=== PATIENT | female | born 1995 | race Caucasian/White ===

== ENCOUNTER 2017-07-11 14:59 | Emergency (ER) | payer SELFPAY ==
[2017-07-11 15:26] VITALS: BP 115/66
--- NOTE | 2017-07-11 15:40 | UC ---
Complaint Female HPI - HPI Summary HPI Summary: 21 YEAR OLD FEMALE PRESENTS WITH COMPLAINS OF HEMORRHOIDAL PAIN. - History Of Current Complaint Chief Complaint: UCGeneralIllness Stated Complaint: PERSONAL Time Seen by Provider: 07/11/17 15:40 Hx Obtained From: Patient Hx Last Menstrual Period: 06/17/17 Onset/Duration: Sudden Onset Timing: Constant Severity Initially: Moderate Severity Currently: Moderate Pain Scale Used: 0-10 Numeric - 5 Character: Sharp Aggravating Factor(s): Movement Alleviating Factor(s): Position - Allergies/Home Medications Allergies/Adverse Reactions: Allergies Allergy/AdvReac Type Severity Reaction Status Date / Time Codeine Allergy Rash Verified 07/11/17 15:26 Home Medications: Home Medications Omeprazole CAP* [Prilosec CAP* 20 MG] 20 mg PO DAILY 07/11/17 [History Confirmed 07/11/17] PMH/Surg Hx/FS Hx/Imm Hx Previously Healthy: Yes - Surgical History Surgical History: Yes Surgery Procedure, Year, and Place: 2016 - Social History Alcohol Use: Occasionally Substance Use Type: None Smoking Status (MU): Heavy Every Day Tobacco Smoker Type: Cigarettes Amount Used/How Often: 1/2ppd - Immunization History Most Recent Influenza Vaccination: no Review of Systems Constitutional: Negative Skin: Negative Eyes: Negative ENT: Negative Respiratory: Negative Cardiovascular: Negative Gastrointestinal: Other - ANAL FISSURE PAIN Genitourinary: Negative Motor: Negative Neurovascular: Negative Musculoskeletal: Negative Neurological: Negative Psychological: Negative All Other Systems Reviewed And Are Negative: Yes Physical Exam Triage Information Reviewed: Yes Vital Signs: Initial Vital Signs Temp 36.6 C 07/11/17 15:18 Pulse 98 07/11/17 15:18 Resp 15 07/11/17 15:18 BP 115/66 07/11/17 15:18 Pulse Ox 100 07/11/17 15:18 Vital Signs Reviewed: Yes Eye Exam: Normal ENT Exam: Normal Dental Exam: Normal Neck exam: Normal Neck: Positive: 1 Respiratory Exam: Normal Cardiovascular Exam: Normal Abdomen Description: Positive: Other: - ANAL FISSURE PAIN Musculoskeletal Exam: Normal Neurological Exam: Normal Psychological Exam: Normal Skin Exam: Normal Complaint Female Dx - Differential Dx/Diagnosis Provider Diagnoses: ANAL FISSURE PAIN Discharge - Discharge Plan Condition: Stable Disposition: HOME Prescriptions: Hydrocortisone Acetate (Rectal [Proctocort] 30 mg FL BID PRN #12 sup PRN Reason: Pain Hydrocortisone Acetate W/ Pram [Analpram Hc 2.5-1 %] 1 cre FL BID PRN #1 tube PRN Reason: Pain Patient Education Materials: Anal Fissure (ED) Forms: *Work Release Referrals: Ezra Mallory MD [Medical Doctor] -
== END 2017-07-11 16:03 | disposition home or self-care (01) ==
LOC: UCCORT 14:59
DX: K62.89 Other specified diseases of anus and rectum (principal); F17.210 Nicotine dependence, cigarettes, uncomplicated; Z88.5 Allergy status to narcotic agent
CPT/HCPCS: 99212; G0463

== ENCOUNTER 2017-12-20 12:06 | Emergency (ER) | payer SELFPAY ==
[2017-12-20 13:21] VITALS: BP 118/69
[2017-12-20] MEDS ORDERED: Ondansetron ODT TAB* 4 MG PO ONE (13:50)
--- NOTE | 2017-12-20 13:57 | UC ---
UC General HPI - HPI Summary HPI Summary: pt is c/o nausea with vomiting today. vomited x 3 but none for almost 3 hours. pt c/o headache as well. no fever, abdominal pain, diarrhea or dysuira. has hx fatty tumor abdominal wall but notes seems bigger, not painful. pt wonders who may recheck that. - History of Current Complaint Chief Complaint: UCGI Stated Complaint: VOMITING Time Seen by Provider: 12/20/17 13:11 Hx Obtained From: Patient Hx Last Menstrual Period: 11/23/17 Onset/Duration: Sudden Onset Timing: Constant Pain Intensity: 4 Aggravating: nothing Alleviating: nothing Associated Signs & Symptoms: Positive: Headache, Nausea, Vomiting. Negative: Cough, Diarrhea, Dysuria, Fever - Allergy/Home Medications Allergies/Adverse Reactions: Allergies Allergy/AdvReac Type Severity Reaction Status Date / Time codeine Allergy Rash Verified 12/20/17 13:03 Home Medications: Home Medications Acetaminophen [Acetaminophen Extra Strength] 1,000 mg PO DAILY PRN 12/20/17 [ History Confirmed 12/20/17] Ibuprofen TAB* [Motrin TAB* 800 MG] 800 mg PO DAILY PRN 12/20/17 [History Confirmed 12/20/17] PMH/Surg Hx/FS Hx/Imm Hx Previously Healthy: Yes - Surgical History Surgical History: Yes Surgery Procedure, Year, and Place: 2016, endoscopy, colonoscopy - Social History Alcohol Use: Occasionally Substance Use Type: None Smoking Status (MU): Heavy Every Day Tobacco Smoker Type: Cigarettes Amount Used/How Often: 1/2ppd - Immunization History Most Recent Influenza Vaccination: no Vaccination Up to Date: Yes Review of Systems Gastrointestinal: Vomiting, Nausea Neurological: Headache Is Patient Immunocompromised?: No All Other Systems Reviewed And Are Negative: Yes Physical Exam Triage Information Reviewed: Yes Appearance: Well-Appearing Vital Signs: Initial Vital Signs Temp 99.3 F 12/20/17 13:12 Pulse 108 12/20/17 13:12 Resp 18 12/20/17 13:12 BP 118/69 12/20/17 13:12 Pulse Ox 99 12/20/17 13:12 Vital Signs Reviewed: Yes Eyes: Positive: Conjunctiva Clear ENT: Positive: Pharynx normal, TMs normal. Negative: Nasal congestion, Nasal drainage Neck: Positive: Supple, Nontender, No Lymphadenopathy Respiratory: Positive: Lungs clear, Normal breath sounds, No respiratory distress Cardiovascular: Positive: RRR, No Murmur, Pulses Normal Abdomen Description: Positive: Nontender, No Organomegaly, Soft, Other: - Slight fullness L of umbilical area but not tender or fluctuant.. Negative: CVA Tenderness (R), CVA Tenderness (L), Distended, Guarding Bowel Sounds: Positive: Present Musculoskeletal: Positive: ROM Intact Neurological: Positive: Alert Psychological: Positive: Age Appropriate Behavior Skin Exam: Normal Diagnostics - Laboratory Diagnostic Studies Completed/Ordered: urine hcg=neg. u/a=trace leuks, culture pending. Re-Evaluation - Re-Evaluation Second Eval Re-Evaluation Time: 14:12 - pt requesting not to wait, wants to be discharged. Course/Dx - Course Course Of Treatment: non toxic, no acute abdomen, no concern pyelonephritis. hcg =neg. u/a=trace leuks and culture pending. vomiting has stopped. the area on her abdomen is not an overt hernia. i think may be mm wall defect or lipoma. will refer to pcp for n/v(dr lawrence whom took over for dr mc) and [facility] for abdominal swelling. - Differential Dx - Multi-Symptom Provider Diagnoses: nausea, vomiting, L abdominal soft tissue fullness Discharge - Discharge Plan Condition: Stable Disposition: HOME Patient Education Materials: Acute Nausea and Vomiting (ED) Forms: *Work Release Referrals: Maki Lawrence MD [Medical Doctor] - 5 Days Dez Turcios [Medical Doctor] - As Soon As Possible Non Staff,Doctor [Primary Care Provider] -
== END 2017-12-20 14:20 | disposition home or self-care (01) ==
LOC: UCCORT 12:06
DX: R11.2 Nausea with vomiting, unspecified (principal); Z88.5 Allergy status to narcotic agent; R19.05 Periumbilic swelling, mass or lump
CPT/HCPCS: 81003; 84702; 87077; 87086; 99212; A9270-GY; G0463

== ENCOUNTER 2018-06-13 17:14 | Emergency (ER) | payer SELFPAY ==
[2018-06-13 18:10] VITALS: BP 111/64
--- NOTE | 2018-06-13 18:19 | UC ---
UC General HPI - HPI Summary HPI Summary: Patient states that her last period was on May 13 of this year. She is now about 2 weeks late. She took 3 home tests but notes that they're only questionable a faintly positive. She comes here for test to see if we get a positive test or not. She has no vaginal bleeding discharge or pain. - History of Current Complaint Chief Complaint: UCGeneralIllness Stated Complaint: PERSONAL Time Seen by Provider: 06/13/18 17:57 Hx Obtained From: Patient Hx Last Menstrual Period: 05/13/18 Pain Intensity: 0 Associated Signs & Symptoms: Negative: Abdominal Pain - Allergy/Home Medications Allergies/Adverse Reactions: Allergies Allergy/AdvReac Type Severity Reaction Status Date / Time codeine Allergy Rash Verified 06/13/18 18:10 PMH/Surg Hx/FS Hx/Imm Hx GI/ History: Gastroesophageal Reflux - Surgical History Surgical History: Yes Surgery Procedure, Year, and Place: 2016, endoscopy, colonoscopy - Family History Known Family History: Positive: None - Social History Lives: With Family Alcohol Use: Occasionally Substance Use Type: None Smoking Status (MU): Heavy Every Day Tobacco Smoker Type: Cigarettes Amount Used/How Often: 1/2ppd - Immunization History Most Recent Influenza Vaccination: no Vaccination Up to Date: Yes Review of Systems Constitutional: Negative Skin: Negative Eyes: Negative ENT: Negative Respiratory: Negative Cardiovascular: Negative Gastrointestinal: Negative Genitourinary: Negative Motor: Negative Neurovascular: Negative Musculoskeletal: Negative Neurological: Negative Psychological: Negative Is Patient Immunocompromised?: No All Other Systems Reviewed And Are Negative: Yes Physical Exam Triage Information Reviewed: Yes Appearance: Well-Appearing Vital Signs: Initial Vital Signs Temp 99.3 F 06/13/18 18:05 Pulse 104 06/13/18 18:05 Resp 16 06/13/18 18:05 BP 111/64 06/13/18 18:05 Pulse Ox 100 06/13/18 18:05 Vital Signs Reviewed: Yes Eyes: Positive: Conjunctiva Clear ENT: Positive: Normal ENT inspection Neck: Positive: Supple, Nontender, No Lymphadenopathy Respiratory: Positive: Lungs clear, Normal breath sounds Cardiovascular: Positive: RRR, No Murmur Abdomen Description: Positive: Nontender, No Organomegaly, Soft. Negative: Distended, Guarding Bowel Sounds: Positive: Present Musculoskeletal: Positive: ROM Intact Neurological: Positive: Alert Psychological: Positive: Age Appropriate Behavior Skin Exam: Normal Diagnostics - Laboratory Diagnostic Studies Completed/Ordered: + test Course/Dx - Differential Dx - Multi-Symptom Provider Diagnoses: + Discharge - Sign-Out/Discharge Documenting (check all that apply): Patient Departure All imaging exams completed and their final reports reviewed: No Studies - Discharge Plan Condition: Stable Disposition: HOME Prescriptions: 21/Iron Fu/Folic Acid [ Complete Caplet] 1 each PO DAILY #30 tablet Patient Education Materials: (ED) Referrals: Pravin Marroquin MD [Medical Doctor] - As Soon As Possible Additional Instructions: STOP THE MOTRIN AND PRILOSEC. TAKE ONLY TYLENOL NEEDED FOR PAIN. - Billing Disposition and Condition Condition: STABLE Disposition: Home
== END 2018-06-13 18:40 | disposition home or self-care (01) ==
LOC: UCCORT 17:14
DX: Z32.01 Encounter for pregnancy test, result positive (principal); F17.210 Nicotine dependence, cigarettes, uncomplicated; Z88.5 Allergy status to narcotic agent
CPT/HCPCS: 84702; 99211; G0463

== ENCOUNTER 2019-08-26 13:11 | Emergency (ER) | payer OTHER ==
[2019-08-26 14:09] VITALS: BP 128/64
--- NOTE | 2019-08-26 14:36 | UC ---
Complaint Female HPI - HPI Summary HPI Summary: Mid-low back pain which patient states is a sign that she has a kidney infection. Also complains of urinary frequency and burning. No fever. - History Of Current Complaint Chief Complaint: UCGU Stated Complaint: LOW BACK/URINARY COMPLAINT Hx Obtained From: Patient Hx Last Menstrual Period: 08/10/19 ?: No - 8 months post- Onset/Duration: Gradual Onset Timing: Intermittent Severity Initially: Mild Severity Currently: Mild Pain Intensity: 6 Character: Burning Aggravating Factor(s): Urination Alleviating Factor(s): Nothing Associated Signs And Symptoms: Positive: Back Pain - Allergies/Home Medications Allergies/Adverse Reactions: Allergies Allergy/AdvReac Type Severity Reaction Status Date / Time codeine Allergy Rash Verified 08/26/19 14:09 Home Medications: Home Medications Omeprazole 40 mg PO DAILY 08/26/19 [History Confirmed 08/26/19] PMH/Surg Hx/FS Hx/Imm Hx Previously Healthy: Yes - Surgical History Surgical History: Yes Surgery Procedure, Year, and Place: x2, endoscopy, colonoscopy, esophageal exploratory in childhood - Family History Known Family History: Positive: None - Social History Occupation: Employed Part-time Alcohol Use: Rare Substance Use Type: None Smoking Status (MU): Heavy Every Day Tobacco Smoker Type: Cigarettes Amount Used/How Often: 1 ppd - Immunization History Most Recent Influenza Vaccination: no Vaccination Up to Date: Yes Review of Systems All Other Systems Reviewed And Are Negative: Yes Genitourinary: Positive: Dysuria, Frequency, Urgency Is Patient Immunocompromised?: No Physical Exam Triage Information Reviewed: Yes Appearance: Well-Appearing, No Pain Distress, Well-Nourished Vital Signs: Initial Vital Signs Temp 97.9 F 08/26/19 14:03 Pulse 115 08/26/19 14:03 Resp 16 08/26/19 14:03 BP 128/64 08/26/19 14:03 Pulse Ox 100 08/26/19 14:03 Vital Signs Reviewed: Yes Eyes: Positive: Conjunctiva Clear ENT: Positive: Pharynx normal, TMs normal, Uvula midline Neck: Positive: Supple, Nontender, No Lymphadenopathy Respiratory: Positive: Lungs clear, Normal breath sounds, No respiratory distress, No accessory muscle use Cardiovascular: Positive: RRR, No Murmur, Pulses Normal, Brisk Capillary Refill Abdomen Description: Positive: Nontender, No Organomegaly, Soft. Negative: CVA Tenderness (R), CVA Tenderness (L), Hepatomegaly, Splenomegaly Bowel Sounds: Positive: Present Musculoskeletal Exam: Normal Neurological Exam: Normal Psychological Exam: Normal Skin Exam: Normal Complaint Female Dx - Course Course Of Treatment: Urinalysis positive for leukocytes, HCG negative. - Differential Dx/Diagnosis Provider Diagnosis: UTI (urinary tract infection) Discharge ED - Sign-Out/Discharge Documenting (check all that apply): Patient Departure All imaging exams completed and their final reports reviewed: No Studies - Discharge Plan Condition: Good Disposition: HOME Prescriptions: Acetaminophen [Tylenol] 325 mg PO Q4H PRN #1 bottle PRN Reason: Pain - Mild Ibuprofen TAB* [Motrin TAB* 600 MG] 600 mg PO Q8H PRN #30 tab PRN Reason: Pain - Mild Sulfamethox/Trimethoprim DS* [Bactrim DS 800/160 TAB*] 1 tab PO BID 5 Days #10 tab Patient Education Materials: Urinary Tract Infection in Women (DC) Referrals: [facility] [Outside] No Primary Care Phys,NOPCP [Primary Care Provider] - Additional Instructions: Increase fluids, May alternate Tylenol every 4 hours and Motrin every 8 hours for pain. Recheck with [facility] in 3-4 days if no improvement. Go to the ER if you develop fever, chills, unable to keep the medicine down. - Billing Disposition and Condition Condition: GOOD Disposition: Home
--- NOTE | 2019-08-30 07:09 | UC ---
- Progress Note Progress Note: please notify patient stop current antibiotic begin falgyl 500 mb twice daily for 7 days recheck in 3 days if not better Course/Dx - Diagnoses Provider Diagnoses: UTI (urinary tract infection) Discharge ED - Sign-Out/Discharge Documenting (check all that apply): Post-Discharge Follow Up All imaging exams completed and their final reports reviewed: No Studies - Discharge Plan Condition: Good Disposition: HOME Prescriptions: Acetaminophen [Tylenol] 325 mg PO Q4H PRN #1 bottle PRN Reason: Pain - Mild Ibuprofen TAB* [Motrin TAB* 600 MG] 600 mg PO Q8H PRN #30 tab PRN Reason: Pain - Mild Sulfamethox/Trimethoprim DS* [Bactrim DS 800/160 TAB*] 1 tab PO BID 5 Days #10 tab Patient Education Materials: Urinary Tract Infection in Women (DC) Referrals: [facility] [Outside] No Primary Care Phys,NOPCP [Primary Care Provider] - Additional Instructions: Increase fluids, May alternate Tylenol every 4 hours and Motrin every 8 hours for pain. Recheck with [facility] in 3-4 days if no improvement. Go to the ER if you develop fever, chills, unable to keep the medicine down. - Billing Disposition and Condition Condition: GOOD Disposition: Home
== END 2019-08-26 14:49 | disposition home or self-care (01) ==
LOC: UCCORT 13:11
DX: N39.0 Urinary tract infection, site not specified (principal); F17.210 Nicotine dependence, cigarettes, uncomplicated; Z88.5 Allergy status to narcotic agent
CPT/HCPCS: 81003; 84702; 87077; 87086; 99212; G0463

== ENCOUNTER 2019-12-01 12:50 | Emergency (ER) | payer OTHER ==
[2019-12-01 13:37] VITALS: BP 118/68
--- NOTE | 2019-12-01 14:02 | UC ---
Skin Complaint HPI - HPI Summary HPI Summary: infected lip piercing x 2 days piercing was done on left lower lip one week ago no the area is red , swollen and very pain , having yellow/ green discharge no fever - History of Current Complaint Chief Complaint: UCSkin Time Seen by Provider: 12/01/19 13:23 Stated Complaint: LIP SKIN CONCERN Hx Obtained From: Patient Hx Last Menstrual Period: 10/29/19 Onset/Duration: Gradual Onset, Lasting Days - 2, Still Present Timing: Constant Onset Severity: Moderate Current Severity: Moderate Pain Intensity: 8 Location: Discrete - left lower lip Character: Swelling, Pain, Redness Aggravating Factor(s): Touch Alleviating Factor(s): Cold Associated Signs & Symptoms: Positive: Tenderness - Allergy/Home Medications Allergies/Adverse Reactions: Allergies Allergy/AdvReac Type Severity Reaction Status Date / Time codeine Allergy Rash Verified 12/01/19 13:37 PMH/Surg Hx/FS Hx/Imm Hx Previously Healthy: Yes - Surgical History Surgical History: Yes Surgery Procedure, Year, and Place: x2, endoscopy, colonoscopy, esophageal exploratory in childhood - Family History Known Family History: Positive: None, Non-Contributory - Social History Alcohol Use: None Substance Use Type: None Smoking Status (MU): Heavy Every Day Tobacco Smoker Type: Cigarettes Amount Used/How Often: 1 ppd - Immunization History Most Recent Influenza Vaccination: no Vaccination Up to Date: Yes Review of Systems All Other Systems Reviewed And Are Negative: Yes Constitutional: Positive: Negative Skin: Positive: Negative Is Patient Immunocompromised?: No Physical Exam Triage Information Reviewed: Yes Appearance: Well-Appearing, No Pain Distress, Well-Nourished Vital Signs: Initial Vital Signs Temp 98.7 F 12/01/19 13:26 Pulse 100 12/01/19 13:26 Resp 16 12/01/19 13:26 BP 118/68 12/01/19 13:26 Pulse Ox 100 12/01/19 13:26 Vital Signs Reviewed: Yes Eye Exam: Normal Eyes: Positive: Conjunctiva Clear ENT: Positive: Normal ENT inspection, Hearing grossly normal, Pharynx normal, Other - lip piercing left lower lip , + erythema, swelling , tender to touch , piercing was removid by twisting the end off. Neck exam: Normal Neck: Positive: Supple, Nontender, No Lymphadenopathy Respiratory: Positive: Chest non-tender, Lungs clear, Normal breath sounds Cardiovascular: Positive: RRR, No Murmur, Pulses Normal Course/Dx - Diagnoses Provider Diagnosis: Cellulitis, lip, Infected pierced lip Discharge ED - Sign-Out/Discharge Documenting (check all that apply): Patient Departure All imaging exams completed and their final reports reviewed: No Studies - Discharge Plan Condition: Stable Disposition: HOME Prescriptions: cephALEXin [Keflex] 500 mg PO Q8H #30 capsule Patient Education Materials: Cellulitis (ED) Referrals: No Primary Care Phys,NOPCP [Primary Care Provider] - If Needed - Billing Disposition and Condition Condition: STABLE Disposition: Home
== END 2019-12-01 14:08 | disposition home or self-care (01) ==
LOC: UCCORT 12:50
DX: K13.0 Diseases of lips (principal); F17.210 Nicotine dependence, cigarettes, uncomplicated; Z88.5 Allergy status to narcotic agent
CPT/HCPCS: 84702; 99212; G0463